=== PATIENT | male | born 1995 | race Caucasian/White ===

== ENCOUNTER 2017-09-08 08:49 | Emergency (ER) | payer BC ==
[~2017-09-08] VITALS: Ht 182.9 cm; Wt 86.4 kg
[2017-09-08 08:54] VITALS: BP 106/66
[2017-09-08 09:29] LABS: INFLUENZA A NEGATIVE; INFLUENZA B POSITIVE
[2017-09-08] MEDS ORDERED: TAMIFLU 75MG75 MG PO (09:37)
[2017-09-08 10:22] VITALS: PULSE 102; TEMP 99.8
== END 2017-09-08 10:24 | disposition home or self-care (01) ==
LOC: COL.ER 08:49
PROVIDERS: Physician Assistant
DX: J10.1 Influenza due to other identified influenza virus with other respiratory manifestations (principal)